=== PATIENT | female | born 1995 | race African-American/Black ===

== ENCOUNTER 2021-03-06 01:42 | Emergency (ER) | payer SELFPAY ==
[~2021-03-06] VITALS: Ht 167.6 cm; Wt 87.0 kg
[2021-03-06 02:35] VITALS: BP 139/88
== END 2021-03-06 02:36 | disposition home or self-care (01) ==
LOC: ER 01:42
DX: F12.10 Cannabis abuse, uncomplicated (principal); R00.0 Tachycardia, unspecified; F10.129 Alcohol abuse with intoxication, unspecified; Y90.0 Blood alcohol level of less than 20 mg/100 ml; J45.909 Unspecified asthma, uncomplicated
CPT/HCPCS: 93005; 99283